=== PATIENT | female | born 1985 | race American Indian/Alaskan Native ===

== ENCOUNTER 2017-02-04 04:20 | Emergency (ER) | payer OTHER ==
--- NOTE | 2017-02-04 04:32 | ED PDOC ---
Arrival/HPI - General Time Seen by Provider: 02/04/17 04:21 Historian: Patient - History of Present Illness Narrative History of Present Illness (Text): 02/04/17 04:31 Sharon Jacobson is a 32 year old female, whose past medical history includes , who presents to the Emergency department complaining of chronic lower back pain for the past 4 years. Patient states she has been unable to see her pain management doctor due to insurance issues and is requesting pain medication. Patient states she usually takes Percocet for back pain. Patient denies any nausea, vomiting, diarrhea, urinary symptoms, saddle paresthesias, weakness/ numbness/tingling in extremities, recent fall/trauma, or any other complaints. Time/Duration: Other (4 years) Symptom Onset: Gradual Symptom Course: Unchanged Quality: Other (Chronic) Activities at Onset: Rest, Light Context: Home Past Medical History - Provider Review Nursing Documentation Reviewed: Yes - Infectious Disease Hx of Infectious Diseases: None - Tetanus Immunization Tetanus Immunization: Unknown - Cardiac Hx Cardiac Disorders: No Hx Hypertension: Yes - Pulmonary Hx Asthma: Yes - Musculoskeletal/Rheumatological Hx Back Pain: Yes - Psychiatric Hx Anxiety: Yes Hx Bipolar Disorder: Yes (Manic) Hx Substance Use: No - Anesthesia Hx Anesthesia: No - Suicidal Assessment Feels Threatened In Home Enviroment: No Family/Social History - Physician Review Nursing Documentation Reviewed: Yes Family/Social History: No Known Family HX Smoking Status: Never Smoked Hx Alcohol Use: No Hx Substance Use: No Hx Substance Use Treatment: No Allergies/Home Meds Allergies/Adverse Reactions: Allergies seafood Allergy (Uncoded 02/04/17 04:33) ANAPHYLAXIS Home Medications: Home Meds Medication Instructions Recorded Confirmed Oxycodone HCl/Acetaminophen 1 tab PO Q6 PRN 02/04/17 02/04/17 [Percocet 10-325 mg Tablet] Review of Systems - Physician Review All systems were reviewed & negative as marked: Yes - Review of Systems Constitutional: Normal. absent: Fevers Eyes: Normal ENT: Normal Respiratory: Normal. absent: SOB, Cough Cardiovascular: Normal. absent: Chest Pain Gastrointestinal: Normal. absent: Abdominal Pain, Diarrhea, Nausea, Vomiting Genitourinary Female: Normal. absent: Dysuria, Frequency, Hematuria, Urine Output Changes Musculoskeletal: Back Pain. absent: Neck Pain Skin: Normal. absent: Rash Neurological: Normal. absent: Headache, Dizziness Endocrine: Normal Hemo/Lymphatic: Normal Psychiatric: Normal Physical Exam Vital Signs Reviewed: Yes Vital Signs Temp Pulse Resp BP Pulse Ox 02/04/17 04:32 97.9 F 88 18 117/60 100 Temperature: Afebrile Blood Pressure: Normal Pulse: Regular Respiratory Rate: Normal Appearance: Positive for: Well-Appearing, Non-Toxic, Comfortable Pain Distress: None Mental Status: Positive for: Alert and Oriented X 3 - Systems Exam Head: Present: Atraumatic, Normocephalic Pupils: Present: PERRL Extroacular Muscles: Present: EOMI Conjunctiva: Present: Normal Mouth: Present: Moist Mucous Membranes Neck: Present: Normal Range of Motion Respiratory/Chest: Present: Clear to Auscultation, Good Air Exchange. No: Respiratory Distress, Accessory Muscle Use Cardiovascular: Present: Regular Rate and Rhythm, Normal S1, S2. No: Murmurs Abdomen: Present: Normal Bowel Sounds. No: Tenderness, Distention, Peritoneal Signs Back: Present: Normal Inspection. No: CVA Tenderness, Midline Tenderness, Paraspinal Tenderness Upper Extremity: Present: Normal Inspection. No: Cyanosis, Edema Lower Extremity: Present: Normal Inspection. No: Edema Neurological: Present: GCS=15, CN II-XII Intact, Speech Normal Skin: Present: Warm, Dry, Normal Color. No: Rashes Psychiatric: Present: Alert, Oriented x 3, Normal Insight, Normal Concentration Medical Decision Making ED Course and Treatment: 02/04/17 04:31 Impression: 32 year old female complaining of chronic lower back pain x4 years. Differential Diagnosis include but are not limited to: chronic back pain Plan: -- Toradol -- Reassess and disposition Prior Visits: Notes and results from previous visits were reviewed. Pt with multiple previous visits to ER for chronic lower back pain and d/c home. Progress Notes: - Medication Orders Current Medication Orders: Discontinued Medications Ketorolac Tromethamine (Toradol) 60 mg IM ONCE ONE Stop: 02/04/17 04:38 Last Admin: 02/04/17 05:07 Dose: Not Given Non-Admin Reason: Patient Refused - Scribe Statement The provider has reviewed the documentation as recorded by the Scribe Jessi Abernathy All medical record entries made by the Scribe were at my direction and personally dictated by me. I have reviewed the chart and agree that the record accurately reflects my personal performance of the history, physical exam, medical decision making, and the department course for this patient. I have also personally directed, reviewed, and agree with the discharge instructions and disposition. Disposition/Present on Arrival - Present on Arrival Any Indicators Present on Arrival: No History of DVT/PE: No History of Uncontrolled Diabetes: No Urinary Catheter: No History Surgical Site Infection Following: None - Disposition Have Diagnosis and Disposition been Completed?: Yes Diagnosis: Chronic back pain Disposition: HOME/ ROUTINE Disposition Time: 04:30 Condition: GOOD Discharge Instructions (ExitCare): Chronic Pain (ED) Prescriptions: Naproxen [Naprosyn Tab] 375 mg PO BID #12 tab
[2017-02-04 04:33] VITALS: BP 117/60; PULSE 88; RESP 18; TEMP 97.9; O2SAT 100
[2017-02-04 04:35] VITALS: BMI 29.9
== END 2017-02-04 05:10 | disposition home or self-care (01) ==
LOC: ED 04:20
DX: M54.5 Low back pain (principal); G89.29 Other chronic pain